=== PATIENT | female | born 1950 | race Caucasian/White ===

== ENCOUNTER → 2017-02-27 | Outpatient (CLI) | payer MEDICARE ==
--- NOTE | 2017-03-03 13:01 | MM ---
Reason for exam: screening (asymptomatic). Last mammogram was performed 1 year and 2 months ago. History: Patient is postmenopausal. Family history of breast cancer in mother at age 64. Benign excisional biopsy of the right breast, 1993. Took estrogen for 1 year beginning at age 46. Physical Findings: A clinical breast exam by your physician is recommended on an annual basis and results should be correlated with mammographic findings. MG 3D Screening Mammo W/Cad Bilateral CC and MLO view(s) were taken. Prior study comparison: December 21, 2015, bilateral MG 3d screening mammo w/cad. August 03, 2014, bilateral MG screening mammo w CAD. The breast tissue is almost entirely fat. Finding: There are secretory calcifications bilaterally. Due to large body habitus, there are 384 images. Difficult to compare. ASSESSMENT: Benign, BI-RAD 2 RECOMMENDATION: Routine screening mammogram of both breasts in 1 year.
== END | disposition home or self-care (01) ==
LOC: RADMAMWWP 10:18
PROVIDERS: ATTEND Internal Medicine
DX: Z12.31 Encounter for screening mammogram for malignant neoplasm of breast (principal)
CPT/HCPCS: 77063; G0202

== ENCOUNTER → 2017-03-13 | Outpatient (CLI) | payer MEDICARE ==
--- NOTE | 2017-03-14 06:45 | XR ---
EXAMINATION TYPE: XR chest 2V DATE OF EXAM: 03/13/2017 9:24 AM HISTORY: [id number] SOB. REFERENCE: NONE. FINDINGS: The study is compromised by the patient's tremendous size. The heart is enlarged. The lungs are clear. Pleural spaces are clear. IMPRESSION: CARDIOMEGALY.
== END ==
LOC: RADXRYALE 08:48
PROVIDERS: ATTEND Internal Medicine Cardiovascular Disease
DX: I51.7 Cardiomegaly (principal)
CPT/HCPCS: 71020

== ENCOUNTER 2017-08-23 13:27 | Emergency (ER) | payer MEDICARE ==
[2017-08-23] MEDS ORDERED: MORPHINE SULFATE 4 MG/ML SYRINGE IV STA (14:35)
[2017-08-23] MEDS ORDERED: ONDANSETRON 4 MG/2 ML VIAL IVP STA (14:35)
[2017-08-23] MEDS ORDERED: RX INFO: IV CONTRAST WAS GIVEN 1 EACH MISC MISCELLANE PRN (14:35)
[2017-08-23] MEDS ORDERED: SODIUM CHLORIDE 0.9% 1,000 ML IV STA ×2 (14:35)
[2017-08-23 15:27] LABS: Basophils # (A) 0.1 k/uL (0-0.2); Basophils % (A) 0 %; CH 29.2; Eosinophils # (A) 0.1 k/uL (0-0.7); Eosinophils % (A) 1 %; HCT 42.8 % (34.0-46.0); HDW 2.42; HGB 14.5 gm/dL (11.4-16.0); Luc # (Auto) 0.11; Luc % (Auto) 1; Lymphocytes # (A) 1.3 k/uL (1.0-4.8); Lymphocytes % (A) 11 %; MCH 29.9 pg (25.0-35.0); MCHC 33.7 g/dL (31.0-37.0); MCV 88.7 fL (80.0-100.0); Mean Platelet Volume 8.3; Monocytes # (A) 0.4 k/uL (0-1.0); Monocytes % (A) 4 %; Neutrophils # (A) 9.8 k/uL (1.3-7.7); Neutrophils % (A) 83 %; RBC 4.83 m/uL (3.80-5.40); RDW 12.6 % (11.5-15.5); WBC 11.8 k/uL (3.8-10.6); WBC (Perox) 11.94
[2017-08-23 15:33] LABS: ALT 38 U/L (9-52); AST 23 U/L (14-36); Alkaline Phosphatase 88 U/L (38-126); Amylase <30 U/L (30-110); Anion Gap 11 mmol/L; Blood Urea Nitrogen 17 mg/dL (7-17); Calcium 9.3 mg/dL (8.4-10.2); Carbon Dioxide 21 mmol/L (22-30); Chloride 107 mmol/L (98-107); Glucose 129 mg/dL (74-99); Non-African American GFR(MDRD) 45 (>60 ml/min/1.73 sqM); Potassium 4.2 mmol/L (3.5-5.1); Sodium 139 mmol/L (137-145); Total Bilirubin 0.6 mg/dL (0.2-1.3); Total Protein 7.1 g/dL (6.3-8.2)
--- NOTE | 2017-08-23 15:44 | ED ---
General Adult HPI - General Chief complaint: Abdominal Pain Stated complaint: Left side pain Time Seen by Provider: 08/23/17 14:22 Source: patient, RN notes reviewed, old records reviewed Mode of arrival: wheelchair Limitations: no limitations - History of Present Illness Initial comments: This is a 67-year-old female here for reversal Dialpak, patient is severe anterior left lower quadrant about pain rating to groin area. No radiation [place]. Patient denies any issues of bowel or bladder, no dysuria no hematuria , no blood in her stool. No recent diarrhea no fevers. Patient has multiple abdominal surgeries history of both gallbladder surgery, hysterectomy. Patient denies any vomiting. No recent colonoscopy - Related Data Home Medications Medication Instructions Recorded Confirmed Benazepril [Lotensin] 20 mg PO DAILY 02/02/15 08/23/17 Levothyroxine Sodium [Synthroid] 100 mcg PO DAILY 02/02/15 08/23/17 Omeprazole [PriLOSEC] 20 mg PO AC-BID 02/02/15 08/23/17 Lasix(Unknown Dose) 1 tab PO DAILY PRN 08/23/17 08/23/17 Allergies Allergy/AdvReac Type Severity Reaction Status Date / Time codeine AdvReac Abdominal Verified 08/23/17 14:34 Pain Review of Systems ROS Statement: Those systems with pertinent positive or pertinent negative responses have been documented in the HPI. ROS Other: All systems not noted in ROS Statement are negative. Past Medical History Past Medical History: GERD/Reflux, Hypertension, Thyroid Disorder History of Any Multi-Drug Resistant Organisms: None Reported Past Surgical History: Cholecystectomy, Hernia Repair, Hysterectomy Additional Past Surgical History / Comment(s): breast biopsy Past Psychological History: No Psychological Hx Reported Smoking Status: Never smoker Past Alcohol Use History: None Reported Past Drug Use History: None Reported General Exam Limitations: no limitations General appearance: alert, in no apparent distress, obese Head exam: Present: atraumatic, normocephalic, normal inspection Eye exam: Present: normal appearance, PERRL, EOMI. Absent: scleral icterus, conjunctival injection, periorbital swelling ENT exam: Present: normal exam, mucous membranes moist Neck exam: Present: normal inspection. Absent: tenderness, meningismus, lymphadenopathy Respiratory exam: Present: normal lung sounds bilaterally. Absent: respiratory distress, wheezes, rales, rhonchi, stridor Cardiovascular Exam: Present: regular rate, normal rhythm, normal heart sounds. Absent: systolic murmur, diastolic murmur, rubs, gallop, clicks GI/Abdominal exam: Present: soft, normal bowel sounds. Absent: distended, tenderness, guarding, rebound, rigid Extremities exam: Present: normal inspection, full ROM, normal capillary refill. Absent: tenderness, pedal edema, joint swelling, calf tenderness Back exam: Present: normal inspection Neurological exam: Present: alert, oriented X3, CN II-XII intact Psychiatric exam: Present: normal affect, normal mood Skin exam: Present: warm, dry, intact, normal color. Absent: rash Course Vital Signs 08/23/17 13:40 Temperature 97.9 F Pulse Rate 95 Respiratory 22 Rate Blood Pressure 165/81 O2 Sat by Pulse 96 Oximetry Medical Decision Making - Medical Decision Making 67 female date ER with left-sided flank pain mostly groin pain positive kidney stone. Patient given discharge pain medication, increase fluid intake. Lab work and urine are negative - Lab Data Result diagrams: 08/23/17 15:10 08/23/17 15:10 Lab Results 08/23/17 08/23/17 08/23/17 Range/Units 15:10 15:10 15:10 WBC 11.8 H (3.8-10.6) k/uL RBC 4.83 (3.80-5.40) m/uL Hgb 14.5 (11.4-16.0) gm/dL Hct 42.8 (34.0-46.0) % MCV 88.7 (80.0-100.0) fL MCH 29.9 (25.0-35.0) pg MCHC 33.7 (31.0-37.0) g/dL RDW 12.6 (11.5-15.5) % Plt Count 214 (150-450) k/uL Neutrophils % 83 % Lymphocytes % 11 % Monocytes % 4 % Eosinophils % 1 % Basophils % 0 % Neutrophils # 9.8 H (1.3-7.7) k/uL Lymphocytes # 1.3 (1.0-4.8) k/uL Monocytes # 0.4 (0-1.0) k/uL Eosinophils # 0.1 (0-0.7) k/uL Basophils # 0.1 (0-0.2) k/uL Sodium 139 (137-145) mmol/L Potassium 4.2 (3.5-5.1) mmol/L Chloride 107 (98-107) mmol/L Carbon Dioxide 21 L (22-30) mmol/L Anion Gap 11 mmol/L BUN 17 (7-17) mg/dL Creatinine 1.20 H (0.52-1.04) mg/dL Est GFR (MDRD) Af Amer 55 (>60 ml/min/1.73 sqM) Est GFR (MDRD) Non-Af 45 (>60 ml/min/1.73 sqM) Glucose 129 H (74-99) mg/dL Plasma Lactic Acid Bobby (0.7-2.0) mmol/L Calcium 9.3 (8.4-10.2) mg/dL Total Bilirubin 0.6 (0.2-1.3) mg/dL AST 23 (14-36) U/L ALT 38 (9-52) U/L Alkaline Phosphatase 88 (38-126) U/L Total Creatine Kinase 159 H (30-135) U/L CK-MB (CK-2) 1.4 (0.0-2.4) ng/mL CK-MB (CK-2) Rel Index 0.9 Total Protein 7.1 (6.3-8.2) g/dL Albumin 4.0 (3.5-5.0) g/dL Amylase <30 L (30-110) U/L Lipase 80 (23-300) U/L 08/23/17 Range/Units 15:10 WBC (3.8-10.6) k/uL RBC (3.80-5.40) m/uL Hgb (11.4-16.0) gm/dL Hct (34.0-46.0) % MCV (80.0-100.0) fL MCH (25.0-35.0) pg MCHC (31.0-37.0) g/dL RDW (11.5-15.5) % Plt Count (150-450) k/uL Neutrophils % % Lymphocytes % % Monocytes % % Eosinophils % % Basophils % % Neutrophils # (1.3-7.7) k/uL Lymphocytes # (1.0-4.8) k/uL Monocytes # (0-1.0) k/uL Eosinophils # (0-0.7) k/uL Basophils # (0-0.2) k/uL Sodium (137-145) mmol/L Potassium (3.5-5.1) mmol/L Chloride (98-107) mmol/L Carbon Dioxide (22-30) mmol/L Anion Gap mmol/L BUN (7-17) mg/dL Creatinine (0.52-1.04) mg/dL Est GFR (MDRD) Af Amer (>60 ml/min/1.73 sqM) Est GFR (MDRD) Non-Af (>60 ml/min/1.73 sqM) Glucose (74-99) mg/dL Plasma Lactic Acid Bobby 1.7 (0.7-2.0) mmol/L Calcium (8.4-10.2) mg/dL Total Bilirubin (0.2-1.3) mg/dL AST (14-36) U/L ALT (9-52) U/L Alkaline Phosphatase (38-126) U/L Total Creatine Kinase (30-135) U/L CK-MB (CK-2) (0.0-2.4) ng/mL CK-MB (CK-2) Rel Index Total Protein (6.3-8.2) g/dL Albumin (3.5-5.0) g/dL Amylase (30-110) U/L Lipase (23-300) U/L - Radiology Data Radiology results: report reviewed (CT pelvis shows positive left-sided kidney stone), image reviewed Disposition Clinical Impression: Abdominal pain, Calculus of left kidney, Renal calculus, left Disposition: HOME SELF-CARE Condition: Good Instructions: Kidney Stones (ED) Referrals: Sulma Moreno MD [Primary Care Provider] - 1-2 days
[2017-08-23 15:59] LABS: Creatine Kinase MB 1.4 ng/mL (0.0-2.4)
--- NOTE | 2017-08-23 16:15 | CT ---
EXAMINATION TYPE: CT abdomen pelvis w con DATE OF EXAM: 08/23/2017 COMPARISON: 02/02/2015 HISTORY: Left sided pain today. CT DLP: 4150.5 mGycm Automated exposure control for dose reduction was used. TECHNIQUE: Helical acquisition of images was performed from the lung bases through the pelvis. CONTRAST: Performed without Oral Contrast and with IV Contrast, patient injected with 80 mL of Visipaque 320. FINDINGS: Lung bases are clear of consolidation. There is no pleural effusion. There is slight decreased densit y in the liver consistent with fatty infiltration. There is no evidence of a splenic mass. There is n o pancreatic mass. There are clips from cholecystectomy. There is no adrenal mass. There is left-sided mild hydronephrosis. There is a 6 mm calculus at the le ft ureteropelvic junction. Kidneys have normal size. There is no retroperitoneal adenopathy. There is no ascites. Appendix appears normal. I see no intestinal wall thickening. There are no dilated loops. There is small area of high attenuat ion at the dependent urinary bladder that could relate to small bladder calculi. I see no bony destru ctive process. There is osteopenia. IMPRESSION: OBSTRUCTING SMALL CALCULUS AT THE LEFT URETERAL PELVIC JUNCTION WITH LEFT-SIDED HYDRONEPHROSIS AND NE LD PERINEPHRIC EDEMA. Possible multiple tiny bladder calculi. Normal appendix. Probable fatty infiltration of the liver.
[2017-08-23] MEDS ORDERED: KETOROLAC 30 MG/ML 1 ML VIAL IVP STA (16:17)
[2017-08-23] MEDS ORDERED: MORPHINE SULFATE 4 MG/ML SYRINGE IVP STA (16:27)
[2017-08-23 17:05] VITALS: BP 145/65; PULSE 98; RESP 17; TEMP 98.1
== END 2017-08-23 17:16 | disposition home or self-care (01) ==
LOC: EC 13:27
DX: N20.0 Calculus of kidney (principal); K21.9 Gastro-esophageal reflux disease without esophagitis; I10 Essential (primary) hypertension; E07.9 Disorder of thyroid, unspecified; Z79.899 Other long term (current) drug therapy; Z88.5 Allergy status to narcotic agent; Z90.49 Acquired absence of other specified parts of digestive tract; Z90.710 Acquired absence of both cervix and uterus
CPT/HCPCS: 99284; 96374; 96375; 36415; 80053; 82150; 82550; 82553; 83605; 83690; 85025; 74177; J2270; Q9967; J2405

== ENCOUNTER → 2017-10-15 | Outpatient (CLI) | payer MEDICARE ==
--- NOTE | 2017-10-15 11:23 | XR ---
EXAMINATION TYPE: XR shoulder complete LT DATE OF EXAM: 10/15/2017 CLINICAL HISTORY: Acute left shoulder pain. TECHNIQUE: Three views of the left shoulder are obtained. COMPARISON: None. FINDINGS: There is no acute fracture evident in the left shoulder. The acromioclavicular joint spac e appears within normal limits. There is curvilinear calcification along inferior margin of glenoid. There is suggestion of loss of rounded shape superior lateral aspect of humeral head. Slight medial a nd inferior positioning of humeral head relative to glenoid. The visualized ribs are intact and unrem arkable. IMPRESSION: There is suspected history of anterior shoulder dislocation with Hill-Sachs type deformi ty humeral head and suspected bony Bankart lesion involving inferior glenoid. Correlate clinically. S ome persistent anterior subluxation is felt present without marixa anterior dislocation.
== END | disposition home or self-care (01) ==
LOC: RADXRYALE 11:05
PROVIDERS: ATTEND Internal Medicine
DX: S43.002A Unspecified subluxation of left shoulder joint, initial encounter (principal)

== ENCOUNTER 2018-04-08 08:36 | Emergency (ER) | payer MEDICARE ==
[2018-04-08] MEDS ORDERED: FAMOTIDINE 20 MG/2 ML VIAL IV STA (09:27)
[2018-04-08] MEDS ORDERED: methylPREDNISolone SOD SUCCI 125 MG/2 ML VIAL IV STA (09:27)
[2018-04-08] MEDS ORDERED: diphenhydrAMINE 50 MG/ML 1 ML VIAL IVP STA (09:27)
--- NOTE | 2018-04-08 09:59 | ED ---
General Adult HPI - General Chief complaint: ENT Stated complaint: Trouble Swallowing, tongue swelling Time Seen by Provider: 04/08/18 09:11 Source: patient, RN notes reviewed Mode of arrival: ambulatory Limitations: no limitations - History of Present Illness Initial comments: Patient 68-year-old female presented emergency room today with a chief complaint of some tongue swelling and burning sensation to the right side. States that she noticed these symptoms 4 days ago lasted for a day off and on. States he put away the last 2 days she saw her family doctor. Was advised that if symptoms return that she should come here to the emergency room. Nurses symptoms again this morning. Seems to have gotten a little better but seems to be coming and going. States is no difficulty swallowing. No difficulty breathing. Patient does take Benzapril for her blood pressure. She did take this this morning. Patient denies any other complaints or symptoms. Patient denies any recent fever, chills, shortness of breath, chest pain, back pain, abdominal pain, nausea or vomiting, dysuria or hematuria, constipation or diarrhea, headaches or visual changes, or any other complaints. - Related Data Home Medications Medication Instructions Recorded Confirmed Benazepril [Lotensin] 20 mg PO DAILY 02/02/15 04/08/18 Levothyroxine Sodium [Synthroid] 100 mcg PO DAILY 02/02/15 04/08/18 Omeprazole [PriLOSEC] 20 mg PO AC-BID 02/02/15 04/08/18 Aspirin EC [Ecotrin Low Dose] 81 mg PO DAILY 04/08/18 04/08/18 Furosemide [Lasix] 40 mg PO DAILY PRN 04/08/18 04/08/18 Potassium Chloride [Klor-Con 10 meq PO DAILY PRN 04/08/18 04/08/18 Sprinkle] Allergies Allergy/AdvReac Type Severity Reaction Status Date / Time codeine Allergy Rash/Hives Verified 04/08/18 09:03 Review of Systems ROS Statement: Those systems with pertinent positive or pertinent negative responses have been documented in the HPI. ROS Other: All systems not noted in ROS Statement are negative. Past Medical History Past Medical History: GERD/Reflux, Hypertension, Thyroid Disorder History of Any Multi-Drug Resistant Organisms: None Reported Past Surgical History: Cholecystectomy, Hernia Repair, Hysterectomy Additional Past Surgical History / Comment(s): breast biopsy Past Psychological History: No Psychological Hx Reported Smoking Status: Never smoker Past Alcohol Use History: None Reported Past Drug Use History: None Reported General Exam - General Exam Comments Initial Comments: General: The patient is awake and alert, in no distress, and does not appear acutely ill. Eye: Pupils are equal, round and reactive to light, extra-ocular movements are intact. No nystagmus. There is normal conjunctiva bilaterally. No signs of icterus. Ears, nose, mouth and throat: There are moist mucous membranes and no oral lesions. No swelling appreciated on exam. Patient tolerating or secretions. Uvula is midline. Neck: The neck is supple, there is no tenderness or JVD. Cardiovascular: There is a regular rate and rhythm. No murmur, rub or gallop is appreciated. Respiratory: Lungs are clear to auscultation, respirations are non-labored, breath sounds are equal. No wheezes, stridor, rales, or rhonchi. Musculoskeletal: Normal ROM, no tenderness. Strength 5/5. Sensation intact. Pulses equal bilaterally 2+. Neurological: A&O x 3. CN II-XII intact, There are no obvious motor or sensory deficits. Coordination appears grossly intact. Speech is normal. Skin: Skin is warm and dry and no rashes or lesions are noted. Psychiatric: Cooperative, appropriate mood & affect, normal judgment. Limitations: no limitations Course Vital Signs 04/08/18 04/08/18 08:43 10:04 Temperature 98.2 F Pulse Rate 88 91 Respiratory 18 20 Rate Blood Pressure 204/91 167/81 O2 Sat by Pulse 98 98 Oximetry Medical Decision Making - Medical Decision Making Case discussed in detail with attending physician Dr. Brewster. Patient reexamined at this time shows no signs of distress resting comfortably. Blood work reviewed and are unremarkable. Patient feeling better at this time. She does admit that symptoms seem to come and go. She denies anything that she can think of that she is ALLERGIC to. She states nothing new. Patient is on Benzapril. At this time was discussed about possible cause. Advised to hold this medication. Advised follow-up the family doctor tomorrow. Advised return if symptoms increase or worsen. - Lab Data Result diagrams: 04/08/18 09:45 04/08/18 09:45 Lab Results 04/08/18 04/08/18 Range/Units 09:45 09:45 WBC 7.9 (3.8-10.6) k/uL RBC 4.59 (3.80-5.40) m/uL Hgb 13.3 (11.4-16.0) gm/dL Hct 39.6 (34.0-46.0) % MCV 86.3 (80.0-100.0) fL MCH 29.0 (25.0-35.0) pg MCHC 33.6 (31.0-37.0) g/dL RDW 12.5 (11.5-15.5) % Plt Count 217 (150-450) k/uL Neutrophils % 75 % Lymphocytes % 17 % Monocytes % 5 % Eosinophils % 2 % Basophils % 1 % Neutrophils # 6.0 (1.3-7.7) k/uL Lymphocytes # 1.3 (1.0-4.8) k/uL Monocytes # 0.4 (0-1.0) k/uL Eosinophils # 0.1 (0-0.7) k/uL Basophils # 0.0 (0-0.2) k/uL Sodium 141 (137-145) mmol/L Potassium 4.1 (3.5-5.1) mmol/L Chloride 104 (98-107) mmol/L Carbon Dioxide 23 (22-30) mmol/L Anion Gap 14 mmol/L BUN 17 (7-17) mg/dL Creatinine 0.99 (0.52-1.04) mg/dL Est GFR (CKD-EPI)AfAm 69 (>60 ml/min/1.73 sqM) Est GFR (CKD-EPI)NonAf 60 (>60 ml/min/1.73 sqM) Glucose 112 H (74-99) mg/dL Calcium 9.2 (8.4-10.2) mg/dL Disposition Clinical Impression: Allergic reaction Disposition: HOME SELF-CARE Condition: Good Instructions: Ear Foreign Body (ED), General Allergic Reaction (ED) Additional Instructions: Please hold Benzapril and discuss with family physician in the next 2 days. Please return here to the emergency room symptoms increase worsen or for any other concerns Is patient prescribed a controlled substance at d/c from ED?: No Referrals: Sulma Moreno MD [Primary Care Provider] - 1-2 days Time of Disposition: 11:01
[2018-04-08 10:16] LABS: Basophils % (A) 1 %; Eosinophils # (A) 0.1 k/uL (0-0.7); Eosinophils % (A) 2 %; HCT 39.6 % (34.0-46.0); HGB 13.3 gm/dL (11.4-16.0); Lymphocytes # (A) 1.3 k/uL (1.0-4.8); Lymphocytes % (A) 17 %; MCHC 33.6 g/dL (31.0-37.0); MCV 86.3 fL (80.0-100.0); Mean Platelet Volume 7.6; Monocytes # (A) 0.4 k/uL (0-1.0); Monocytes % (A) 5 %; Neutrophils % (A) 75 %; Platelet Count 217 k/uL (150-450); RBC 4.59 m/uL (3.80-5.40); RDW 12.5 % (11.5-15.5); WBC 7.9 k/uL (3.8-10.6)
[2018-04-08 10:39] LABS: Calcium 9.2 mg/dL (8.4-10.2); Potassium 4.1 mmol/L (3.5-5.1)
[2018-04-08 11:34] VITALS: BP 156/78; PULSE 70; RESP 18; TEMP 97.8
== END 2018-04-08 11:25 | disposition home or self-care (01) ==
LOC: EC 08:36
DX: T78.40XA Allergy, unspecified, initial encounter (principal); K21.9 Gastro-esophageal reflux disease without esophagitis; I10 Essential (primary) hypertension; E07.9 Disorder of thyroid, unspecified; Z79.82 Long term (current) use of aspirin; Z79.899 Other long term (current) drug therapy; Z88.5 Allergy status to narcotic agent
CPT/HCPCS: 36415; 80048; 85025; 99284; 96374; 96375 ×2; J1200; J2930

== ENCOUNTER → 2021-04-17 | Outpatient (CLI) | payer MEDICARE ==
--- NOTE | 2021-04-17 15:52 | US ---
EXAMINATION TYPE: US venous doppler duplex LE LT DATE OF EXAM: 04/17/2021 2:59 PM COMPARISON: NONE CLINICAL HISTORY: M79.89 Left leg swelling. TECHNIQUE: The lower extremity deep venous system is examined utilizing real time linear array sonog yarelis with graded compression, doppler sonography and color-flow sonography. VESSELS IMAGED: Common Femoral Vein Deep Femoral Vein Greater Saphenous Vein * Femoral Vein Popliteal Vein Small Saphenous Vein * Proximal Calf Veins (* superficial vessels) Left Leg: Negative for DVT as visualized in this very limited study. Gross morbid obesity, interstit ial edema, unable to visualize vessels in groin due to large panus, unable to well visualized vessels behind knee due to edema and inability to turn probe in transverse. IMPRESSION: 1. Very limited study due to gross morbid obesity. Inability to visualize the vessels in the groin du e to large amount of pannus and vessels behind the knee due to edema and difficult positioning. No vi sualized deep venous thrombosis in the left lower extremity.
== END | disposition home or self-care (01) ==
LOC: RADUSWWP 14:30
PROVIDERS: ATTEND Internal Medicine
DX: M79.89 Other specified soft tissue disorders (principal); E66.01 Morbid (severe) obesity due to excess calories

== ENCOUNTER 2021-06-30 22:36 | Inpatient (IN) | payer MEDICARE ==
[2021-06-30] MEDS ORDERED: HEPARIN SODIUM 1,000 UN/ML (10ML VL) IV PRN (23:23)
--- NOTE | 2021-06-30 23:29 | ED ---
General Adult HPI - General Chief complaint: Chest Pain Stated complaint: AFib Time Seen by Provider: 06/30/21 22:38 Source: patient, EMS Mode of arrival: EMS Limitations: no limitations - History of Present Illness Initial comments: This patient is a 71-year-old woman who presents here as a transfer from [facility]. The patient had gone there probably around 2 in the afternoon she states because she was experiencing palpitations and dyspnea. The patient states that the symptoms had started last night while she was trying to sleep. She states it felt like her heart was flopping. She states that when it hadn't resolved by today she felt she should go to the hospital and was seen there. At the other hospital she was diagnosed with the new onset of atrial fibrillation or flutter. Her initial heart rate was in the 140s. She was given Cardizem and heparin and transferred here on infusions of both those medications. From the other hospital her initial troponin was negative. The patient is denying significant chest pain. Patient had some intermittent dyspnea but states it is gone now. She has not had other anginal symptoms. Onset/Timin -: days(s) Location: chest Radiation: non-radiation Severity scale (1-10): 0 Quality: other Consistency: constant Improves with: none Worsens with: none Associated Symptoms: shortness of breath - Related Data Home Medications Medication Instructions Recorded Confirmed Omeprazole [PriLOSEC] 20 mg PO DAILY 02/02/15 07/01/21 Acetaminophen Tab [Tylenol] 1,000 mg PO Q6HR PRN 07/01/21 07/01/21 Furosemide [Lasix] 10 mg PO DAILY PRN 07/01/21 07/01/21 Levothyroxine Sodium [Synthroid] 125 mcg PO DAILY 07/01/21 07/01/21 Potassium Chloride ER [K-Dur 10] 10 meq PO DAILY PRN 07/01/21 07/01/21 SILVER sulfADIAZINE CREAM 1 applic TOPICAL DAILY 07/01/21 07/01/21 [Silvadene Cream] Previous Rx's Medication Instructions Recorded Apixaban [Eliquis] 5 mg PO BID 30 Days #60 tab 07/02/21 Diltiazem Oral [Cardizem*] 30 mg PO TID 30 Days #90 tab 07/03/21 Cephalexin [Keflex] 500 mg PO Q6HR 7 Days #28 cap 07/04/21 Losartan Potassium 100 mg PO DAILY 30 Days #30 tab 07/04/21 Allergies Allergy/AdvReac Type Severity Reaction Status Date / Time codeine Allergy Rash/Hives Verified 07/01/21 08:28 Review of Systems ROS Statement: Those systems with pertinent positive or pertinent negative responses have been documented in the HPI. ROS Other: All systems not noted in ROS Statement are negative. Constitutional: Denies: fever, chills Eyes: Denies: vision change Respiratory: Reports: as per HPI, dyspnea. Denies: cough, wheezes, hemoptysis Cardiovascular: Reports: palpitations. Denies: chest pain, orthopnea, edema, syncope Gastrointestinal: Denies: abdominal pain, vomiting, diarrhea, melena, hematochezia Genitourinary: Denies: dysuria, frequency Musculoskeletal: Denies: back pain Skin: Reports: change in color (Left lower extremity) Neurological: Denies: headache, weakness, numbness Hematological/Lymphatic: Denies: easy bleeding Past Medical History Past Medical History: GERD/Reflux, Hypertension, Thyroid Disorder History of Any Multi-Drug Resistant Organisms: None Reported Past Surgical History: Cholecystectomy, Hernia Repair, Hysterectomy Additional Past Surgical History / Comment(s): breast biopsy Past Psychological History: No Psychological Hx Reported Smoking Status: Never smoker Past Alcohol Use History: None Reported Past Drug Use History: None Reported General Exam Limitations: no limitations General appearance: alert, in no apparent distress Head exam: Present: atraumatic, normocephalic Eye exam: Present: normal appearance. Absent: scleral icterus, conjunctival injection ENT exam: Present: normal oropharynx Neck exam: Present: normal inspection Respiratory exam: Present: normal lung sounds bilaterally. Absent: respiratory distress, wheezes, rales, rhonchi, stridor Cardiovascular Exam: Present: regular rate (Proximally 70 at my exam), normal rhythm, normal heart sounds. Absent: systolic murmur, diastolic murmur, rubs, gallop GI/Abdominal exam: Present: soft. Absent: distended, tenderness, guarding, re bound, rigid Extremities exam: Present: full ROM, normal capillary refill, pedal edema (Trace edema and warmth of the left lower extremity, mainly pretibial area). Absent: tenderness, calf tenderness Back exam: Present: normal inspection Neurological exam: Present: alert Skin exam: Present: warm, dry, intact, erythema (Left lower extremity). Absent: rash Course Vital Signs 06/30/21 06/30/21 06/30/21 22:39 22:52 23:30 Temperature 98 F Pulse Rate 72 70 Pulse Rate [ 70 Insulation Estimator ] Respiratory 20 20 Rate Blood Pressure 142/86 147/75 Blood Pressure [Left Arm] O2 Sat by Pulse 98 98 Oximetry 07/01/21 00:30 Temperature 97.7 F Pulse Rate Pulse Rate [ 96 Insulation Estimator ] Respiratory 18 Rate Blood Pressure Blood Pressure 163/94 [Left Arm] O2 Sat by Pulse 98 Oximetry EKG Findings - EKG Comments: EKG Findings:: The 12-lead ECG appears show the underlying rhythm is atrial flutter with approximately 14-1 conduction. Possible old septal infarct. - EKG Results: EKG: interpreted by KARLA, normal axis, normal ST/T Medical Decision Making - Lab Data Result diagrams: 07/02/21 07:14 07/03/21 07:08 Lab Results 06/30/21 06/30/21 Range/Units 23:15 23:15 PT 11.5 (9.0-12.0) sec INR 1.1 (<1.2) APTT 91.5 H (22.0-30.0) sec Troponin I 0.015 (0.000-0.034) ng/mL Disposition Clinical Impression: Atrial flutter, Cellulitis of left leg Disposition: ADMITTED IP TO THIS HOSP Condition: Fair
[2021-06-30] MEDS ORDERED: HEPARIN SOD,PORK IN 0.45% NACL 25,000 UNIT in 0.45% NACL 1 250ML.BAG IV SCH (23:30)
[2021-06-30] MEDS ORDERED: DILTIAZEM 125 MG in SODIUM CHLORIDE 0.9% 100 ML IV SCH (23:30)
[2021-06-30] MEDS ORDERED: NITROGLYCERIN SL TABS 0.4 MG TAB SUBLINGUAL PRN (23:31)
[2021-06-30] MEDS ORDERED: FUROSEMIDE 40 MG TAB PO PRN (23:33)
[2021-06-30] MEDS ORDERED: POTASSIUM CHLORIDE ER 10 MEQ TAB.ER.PRT PO PRN (23:33)
[2021-07-01 00:22] LABS: INR 1.1 (<1.2); Partial Thromboplastin Time 91.5 sec (22.0-30.0); Prothrombin Time 11.5 sec (9.0-12.0)
[2021-07-01] MEDS: PANTOPRAZOLE 40 MG TABLET PO SCH (06:13)
[2021-07-01] MEDS ORDERED: LEVOTHYROXINE 100 MCG TAB PO SCH (06:30)
[2021-07-01] MEDS ORDERED: FAMOTIDINE 20 MG/2 ML VIAL IV SCH (09:00)
[2021-07-01] MEDS ORDERED: ASPIRIN 325 MG TAB PO SCH (09:00)
[2021-07-01] MEDS ORDERED: lisinopriL 20 MG TAB PO SCH (09:00)
--- NOTE | 2021-07-01 09:12 | P.HPIM ---
History of Present Illness This is a pleasant 71 years old female with past medical history of hypertension, GERD, hypothyroidism. She is a patient of Dr. Moreno. Her metal reed tuner is Dr. Miles, her PCP sent her to him but she is not sure why, she had a stress test 2 years ago but she could not finish it. She was transferred from [facility] for dyspnea and palpitations and found to have A. fib/flutter Patient states that she went to [facility] because of irregular palpitation Friday to Friday night, thus 2 nights ago. Patient also has referred to Dr. Barriga last week because of left leg cellulitis while on Keflex, ultrasound of the left leg was then showing no clot per report from [place] Patient states that she has chronic dyspnea with no recent worsening Vital signs stable. Heart rate is controlled and 70s. Troponins 2 are -ve 0.015. INR is normal at 1.1. EKG showing atrial flutter with 421 AV block at [address]-T changes. In the emergency room also patient was started on cefazolin for possible cellulitis, she is on Cardizem drip at 5 mg per hour and heparin drip. Review of records from [facility] Urinalysis is not suspicious for infection WBC is normal at 9. Hemoglobin 13.9, platelets 226. However she has elevated neutrophil at 74.1. INR is 1.0. Sodium 139, potassium 3.8. Creatinine 1.1 EKG reported to have atrial fibrillation ProBNP is 277, TSH normal 2.9 CTA of the chest with contrast showing no definite acute central pulmonary embolus. Segmental and subsegmental pulmonary arteries are severely limited in evaluation. Review of Systems CONSTITUTIONAL: No fever, no malaise, no fatigue. HEENT: No recent visual problems or hearing problems. Denied any sore throat. CARDIOVASCULAR: No orthopnea, PND, no syncope. PULMONARY: No chest wall tenderness, no cough, no hemoptysis. GASTROINTESTINAL: No diarrhea, no nausea, no vomiting, no abdominal pain. Normoactive bowel sounds. NEUROLOGICAL: No headaches, no weakness, no numbness. HEMATOLOGICAL: Denies any bleeding or petechiae. GENITOURINARY: Denies any burning micturition, frequency, or urgency. MUSCULOSKELETAL/RHEUMATOLOGICAL: Denies any joint pain, swelling, or any muscle pain. ENDOCRINE: Denies any polyuria or polydipsia. Past Medical History Past Medical History: GERD/Reflux, Hypertension, Thyroid Disorder History of Any Multi-Drug Resistant Organisms: None Reported Past Surgical History: Cholecystectomy, Hernia Repair, Hysterectomy Additional Past Surgical History / Comment(s): breast biopsy Past Psychological History: No Psychological Hx Reported Smoking Status: Never smoker Past Alcohol Use History: None Reported Past Drug Use History: None Reported Medications and Allergies Home Medications Medication Instructions Recorded Confirmed Type Omeprazole [PriLOSEC] 20 mg PO DAILY 02/02/15 07/01/21 History Acetaminophen Tab [Tylenol Tab] 1,000 mg PO Q6HR PRN 07/01/21 07/01/21 History Furosemide [Lasix] 10 mg PO DAILY PRN 07/01/21 07/01/21 History Ibuprofen [Motrin Ib] 400 mg PO Q8H PRN 07/01/21 07/01/21 History Levothyroxine Sodium [Synthroid] 125 mcg PO DAILY 07/01/21 07/01/21 History Losartan Potassium 100 mg PO DAILY 07/01/21 07/01/21 History Potassium Chloride ER [K-Dur 10] 10 meq PO DAILY PRN 07/01/21 07/01/21 History SILVER sulfADIAZINE CREAM 1 applic TOPICAL DAILY 07/01/21 07/01/21 History [Silvadene Cream] Allergies Allergy/AdvReac Type Severity Reaction Status Date / Time codeine Allergy Rash/Hives Verified 07/01/21 08:28 Physical Exam Vitals: Vital Signs Temp Pulse Pulse Resp BP BP Pulse Ox 07/01/21 04:00 75 18 130/73 99 07/01/21 00:30 97.7 F 96 18 163/94 98 06/30/21 23:30 70 20 147/75 98 06/30/21 22:52 70 06/30/21 22:39 98 F 72 20 142/86 98 Intake and Output 06/30/21 07/01/21 07/01/21 22:59 06:59 14:59 Intake Total 0 Balance 0 Intake: Oral 0 Other: Voiding Method Toilet # Voids 3 Weight 149.685 kg 150 kg -GENERAL: The patient is alert and oriented x3, not in any acute distress. Obese HEENT: Pupils are round and equally reacting to light. EOMI. No scleral icterus. No conjunctival pallor. Normocephalic, atraumatic. No pharyngeal erythema. No thyromegaly. CARDIOVASCULAR: S1 and S2 present. No murmurs, rubs, or gallops. PULMONARY: Chest is clear to auscultation, no wheezing or crackles. ABDOMEN: Soft, nontender, nondistended, normoactive bowel sounds. No palpable organomegaly. MUSCULOSKELETAL: No joint swelling or deformity. -EXTREMITIES: No cyanosis, clubbing, or pedal edema. Left leg is warm and red. No swelling NEUROLOGICAL: Gross neurological examination did not reveal any focal deficits. SKIN: No rashes. No petechiae Results Labs: Abnormal Lab Results - Last 24 Hours (Table) 06/30/21 Range/Units 23:15 APTT 91.5 H (22.0-30.0) sec Assessment and Plan Assessment: New onset A. fib/flutter Possible left leg cellulitis , rule out DVT Hypertension Hypothyroidism Elevated creatinine at 1.1, possible chronic kidney disease versus subacute elements History of GERD Plan: This is a pleasant 71 years old female who presents with A. fib and flutter. Continue with heparin and Cardizem drip. Cardiology consult. Check hemoglobin A1c. Duplex ultrasound Continue with cefazolin. Labs and medication were reviewed.. Continue same treatment. Continue with symptomatic treatment. Resume home medication. Monitor lytes and vitals. DVT and GI prophylaxis. Further recommendations depends on the clinical course of the patient DVT prophylaxis:s heparin GI Prophylaxis: Pepcid PT/OT: Pending Prognosis is guarded
[2021-07-01] MEDS ORDERED: LEVOTHYROXINE 25 MCG TAB PO ONE (09:30)
--- NOTE | 2021-07-01 09:48 | US ---
EXAMINATION TYPE: US venous doppler duplex LE LT DATE OF EXAM: 07/01/2021 9:34 AM COMPARISON: US dated 04/17/2021 CLINICAL HISTORY: Rule out DVT. cellulitis SIDE PERFORMED: Left TECHNIQUE: The lower extremity deep venous system is examined utilizing real time linear array sonog yarelis with graded compression, doppler sonography and color-flow sonography. VESSELS IMAGED: Common Femoral Vein Deep Femoral Vein Greater Saphenous Vein * Femoral Vein Popliteal Vein Small Saphenous Vein * Proximal Calf Veins (* superficial vessels) Left Leg: Negative for DVT IMPRESSION: Grayscale, color doppler, spectral doppler imaging performed of the deep veins of the lo wer extremities. There is normal flow, compressibility, vascular waveforms.
[2021-07-01 11:47] LABS: Chol/HDL Ratio 5.91; LDL Cholesterol,Calculated 69.4 mg/dL (0.0-131.0); VLDL Calculation 38.6 mg/dL (5.00-40.00)
--- NOTE | 2021-07-01 11:47 | P.CRDCN ---
History of Present Illness History of present illness: HISTORY OF PRESENTING ILLNESS Patient is a pleasant 71-year-old female with history of hypertension, GERD, hypothyroidism, chronic lower extremity edema who presents from [facility] secondary to atrial flutter. Patient states a few nights ago she had been feeling fairly well when she started feeling palpitations and feeling like her heart was fluttering. She therefore went to hospital in [place] was found to have new-onset atrial flutter. She was started on Cardizem drip and placed on a heparin drip. She also has had bilateral lower extremity edema however predominantly on the left side. She recently saw Dr. Bhakta on Friday where she had ultrasound which showed no blood clot and was placed on a cream with recommendations for compression stockings. She admits she cannot put on the compression stockings. Her lower extremity edema is usually worse at night afte r being on her feet all day and better in the morning however always has some degree of swelling. She also takes Lasix which somewhat improved the swelling however normally avoids it as she will have to urinate throughout the day. She denies any history of heart failure that she knows of, coronary artery disease or stenting. No prior history of A. fib. No issues with bleeding. She does see Dr. Hampton however has been a few years. She admits she likely has sleep apnea however hasn't been checked. Blood work at [facility] showed white blood cell count 9, hemoglobin 13.9, platelets 226, creatinine 1.1, proBNP 277, TSH 2.[address] of the chest showed no pulmonary embolism. REVIEW OF SYSTEMS At the time of my exam: CONSTITUTIONAL: Denies fever or chills. CARDIOVASCULAR: Denies chest pain, +chronic shortness of breath, no orthopnea, PND or palpitations. +LE edema RESPIRATORY: Denies cough. GASTROINTESTINAL: Denies abdominal pain, diarrhea, constipation, nausea or vomit ing. MUSCULOSKELETAL: Denies myalgias. NEUROLOGIC: Denies numbness, tingling or weakness. ENDOCRINE: Denies fatigue, weight change, polydipsia or polyurina. GENITOURINARY: Denies burning, hematuria or urgency with micturation. HEMATOLOGIC: Denies history of anemia or bleeding. PHYSICAL EXAMINATION Vital signs reviewed. CONSTITUTIONAL: No apparent distress, obese HEENT: Head is normocephalic. Pupils are equal, round. Sclerae anicteric. Mucous membranes of the mouth are moist. No JVD. No carotid bruit. CHEST EXAMINATION: Lungs are clear to auscultation. No chest wall tenderness is noted on palpation or with deep breathing. HEART EXAMINATION: Irregular rate and rhythm. S1, S2 heard. No murmurs, gallops or rub. ABDOMEN: Soft, nontender. Positive bowel sounds. EXTREMITIES: 2+ peripheral pulses, +L much greater than right lower extremity edema, mild erythema of LLE, no calf tenderness. NEUROLOGIC EXAMINATION: Patient is awake, alert and oriented x3. ASSESSMENT 1. New-onset atrial flutter, currently controlled ventricular rate 2. Chronic left lower extremity edema, likely in the component of venous insufficiency 3. Left lower extremity cellulitis 4. Essential hypertension 5. Likely sleep apnea PLAN New-onset of atrial flutter with controlled ventricular rates on Cardizem drip at 5. We will stop Cardizem drip and start by mouth Cardizem 30 mg every 8 hours. Stop heparin drip and start Eliquis 5 mg twice a day and evaluate for pricing. Check 2-D echo to evaluate for left ventricular function. Patient likely needs outpatient sleep study. Left lower extremity swelling likely mainly related to venous insufficiency however normally does help somewhat with Lasix at home however she does not take the Lasix. Continue scheduled Lasix while in the hospital. Likely discharge home after echocardiogram performed and if heart rates are controlled. Past Medical History Past Medical History: GERD/Reflux, Hypertension, Thyroid Disorder History of Any Multi-Drug Resistant Organisms: None Reported Past Surgical History: Cholecystectomy, Hernia Repair, Hysterectomy Additional Past Surgical History / Comment(s): breast biopsy Past Psychological History: No Psychological Hx Reported Smoking Status: Never smoker Past Alcohol Use History: None Reported Past Drug Use History: None Reported Medications and Allergies Home Medications Medication Instructions Recorded Confirmed Type Omeprazole [PriLOSEC] 20 mg PO DAILY 02/02/15 07/01/21 History Acetaminophen Tab [Tylenol Tab] 1,000 mg PO Q6HR PRN 07/01/21 07/01/21 History Furosemide [Lasix] 10 mg PO DAILY PRN 07/01/21 07/01/21 History Ibuprofen [Motrin Ib] 400 mg PO Q8H PRN 07/01/21 07/01/21 History Levothyroxine Sodium [Synthroid] 125 mcg PO DAILY 07/01/21 07/01/21 History Losartan Potassium 100 mg PO DAILY 07/01/21 07/01/21 History Potassium Chloride ER [K-Dur 10] 10 meq PO DAILY PRN 07/01/21 07/01/21 History SILVER sulfADIAZINE CREAM 1 applic TOPICAL DAILY 07/01/21 07/01/21 History [Silvadene Cream] Allergies Allergy/AdvReac Type Severity Reaction Status Date / Time codeine Allergy Rash/Hives Verified 07/01/21 08:28 Physical Exam Vitals: Vital Signs Temp Pulse Pulse Resp BP BP Pulse Ox 07/01/21 04:00 75 18 130/73 99 07/01/21 00:30 97.7 F 96 18 163/94 98 06/30/21 23:30 70 20 147/75 98 06/30/21 22:52 70 06/30/21 22:39 98 F 72 20 142/86 98 Intake and Output 06/30/21 07/01/21 07/01/21 22:59 06:59 14:59 Intake Total 0 586.167 Balance 0 586.167 Intake: Intake, IV Titration 106.167 Amount Heparin Sod,Pork in 0.45% 106.167 NaCl 25,000 unit In 0.45 % NaCl 1 250ml.bag @ 6. 6807 UNITS/KG/HR 10 mls/ hr IV .Q24H EZIO Rx#: [id number] Oral 0 480 Other: Voiding Method Toilet # Voids 3 2 Weight 149.685 kg 150 kg Results Cardiac Enzymes 06/30/21 07/01/21 07/01/21 Range/Units 23:15 03:24 07:10 Troponin I 0.015 0.015 <0.012 (0.000-0.034) ng/mL Coagulation 06/30/21 07/01/21 Range/Units 23:15 07:10 PT 11.5 (9.0-12.0) sec APTT 91.5 H 29.2 (22.0-30.0) sec Current Medications Generic Name Dose Route Start Last Admin Trade Name Freq PRN Reason Stop Dose Admin Diltiazem HCl 30 mg 07/01/21 16:00 Diltiazem Oral 30 Mg Tab PO TID [facility] Famotidine 20 mg 07/01/21 09:00 07/01/21 09:57 Famotidine 20 Mg/2 Ml Vial IV 20 mg Q12HR EZIO Administration Furosemide 40 mg 07/01/21 11:45 Furosemide 40 Mg Tab PO DAILY [facility] Heparin Sodium (Porcine) 0 unit 06/30/21 23:23 07/01/21 10:39 Heparin Sodium 1,000 Un/Ml (10ml Vl) IV 4,000 unit PER PROTOCOL PRN Administration Low PTT Protocol Cefazolin Sodium 1,000 mg/ 50 mls @ 100 mls/hr 07/01/21 00:00 07/01/21 10:34 Sodium Chloride IVPB 100 mls/hr Q8HR EZIO Administration Levothyroxine Sodium 125 mcg 07/02/21 06:30 Levothyroxine 125 Mcg Tab PO DAILY@0630 [facility] Losartan Potassium 50 mg 07/02/21 09:00 Losartan 50 Mg Tab PO DAILY [facility] Nitroglycerin 0.4 mg 06/30/21 23:31 Nitroglycerin Sl Tabs 0.4 Mg Tab SUBLINGUAL Q5M PRN Chest Pain Pantoprazole Sodium 40 mg 07/01/21 07:30 07/01/21 06:13 Pantoprazole 40 Mg Tablet PO 40 mg [id number] EZIO Administration Potassium Chloride 10 meq 06/30/21 23:33 Potassium Chloride Er 10 Meq Tab.Er.Prt PO DAILY PRN SWELLING Intake and Output 06/30/21 07/01/21 07/01/21 22:59 06:59 14:59 Intake Total 0 586.167 Balance 0 586.167 Intake: Intake, IV Titration 106.167 Amount Heparin Sod,Pork in 0.45% 106.167 NaCl 25,000 unit In 0.45 % NaCl 1 250ml.bag @ 6. 6807 UNITS/KG/HR 10 mls/ hr IV .Q24H EZIO Rx#: [id number] Oral 0 480 Other: Voiding Method Toilet # Voids 3 2 Weight 149.685 kg 150 kg
[2021-07-01] MEDS: APIXABAN 5 MG TAB PO SCH ×2 (12:52→19:42)
[2021-07-01] MEDS: FUROSEMIDE 40 MG TAB PO SCH (12:52)
[2021-07-01] MEDS: DILTIAZEM ORAL 30 MG TAB PO SCH ×2 (16:40→20:56)
[2021-07-01 20:18] LABS: Hemoglobin A1C 5.8 % (4.0-6.0)
[2021-07-01] MEDS ORDERED: FAMOTIDINE 20 MG TAB PO SCH (21:00)
[2021-07-02] MEDS: PANTOPRAZOLE 40 MG TABLET PO SCH (06:28)
[2021-07-02] MEDS: LEVOTHYROXINE 125 MCG TAB PO SCH (06:28)
[2021-07-02 07:58] LABS: HCT 39.1 % (34.0-46.0); HGB 12.9 gm/dL (11.4-16.0); MCH 29.6 pg (25.0-35.0); MCV 89.8 fL (80.0-100.0); Platelet Count 194 k/uL (150-450); RBC 4.36 m/uL (3.80-5.40); WBC 7.3 k/uL (3.8-10.6)
[2021-07-02 07:59] LABS: Basophils % (A) 1 %; Eosinophils # (A) 0.2 k/uL (0-0.7); Eosinophils % (A) 2 %; Lymphocytes # (A) 2.1 k/uL (1.0-4.8); Lymphocytes % (A) 29 %; Monocytes # (A) 0.6 k/uL (0-1.0); Monocytes % (A) 8 %; Neutrophils # (A) 4.2 k/uL (1.3-7.7); Neutrophils % (A) 58 %
[2021-07-02 08:15] LABS: Calcium 8.9 mg/dL (8.4-10.2); Potassium 3.4 mmol/L (3.5-5.1)
[2021-07-02] MEDS ORDERED: Potassium Replacement Protocol 1 EACH MISC MISCELLANE PRN (08:34)
[2021-07-02] MEDS: FUROSEMIDE 40 MG TAB PO SCH (08:42)
[2021-07-02] MEDS: DILTIAZEM ORAL 30 MG TAB PO SCH ×3 (08:42→21:29)
[2021-07-02] MEDS: LOSARTAN 50 MG TAB PO SCH (08:42)
[2021-07-02] MEDS: APIXABAN 5 MG TAB PO SCH ×2 (08:42→21:29)
[2021-07-02] MEDS: POTASSIUM CHLORIDE ER 20 MEQ TAB.ER PO SCH ×2 (09:48→12:35)
--- NOTE | 2021-07-02 11:09 | P.PN ---
Subjective Patient is a pleasant 71-year-old female with history of hypertension, GERD, hypothyroidism, chronic lower extremity edema who presents from [facility] secondary to atrial flutter. She does see Dr. Hampton however has been a few years. Patient states a few nights ago she had been feeling fairly well when she started feeling palpitations and feeling like her heart was fluttering. She therefore went to hospital in [place] was found to have new- onset atrial flutter. She was started on Cardizem drip and placed on a heparin drip. No prior history of A. fib. No issues with bleeding. She admits she likely has sleep apnea however hasn't been checked. Work up at [facility] showed white blood cell count 9, hemoglobin 13.9, platelets 226, creatinine 1.1, proBNP 277, TSH 2.[address] of the chest showed no pulmonary embolism. 07/02/2021: Patient seen and examined at bedside, no acute distress. She denies any chest pain, palpitations, lightheadedness, dizziness. She does continue to have left lower extremity redness in occasional burning. She states the redness has improved. Telemetry reviewed, patient is currently in sinus mechanism HR 60- 80s. Awaiting Echocardiogram. Blood pressure 125/73, heart rate 81 afebrile maintaining oxygen saturations 94% on room air. Patient currently maintained on Eliquis 5 mg twice a day, Cardizem 30 mg 3 times a day, Lasix 40 mg daily, losartan 50 mg daily, IV cefazolin. PHYSICAL EXAMINATION Vital signs reviewed. CONSTITUTIONAL: No apparent distress, obese HEENT: Head is normocephalic. No JVD. CHEST EXAMINATION: Lungs are clear to auscultation. No chest wall tenderness is noted on palpation or with deep breathing. HEART EXAMINATION: Regular rate and rhythm. S1, S2 heard. No murmurs, gallops or rub. ABDOMEN: Soft, nontender. Positive bowel sounds. EXTREMITIES: 2+ peripheral pulses, +L much greater than right lower extremity edema, mild erythema of LLE, no calf tenderness. NEUROLOGIC EXAMINATION: Patient is awake, alert and oriented x3. ASSESSMENT New-onset paroxysmal atrial flutter, currently in sinus mechanism Chronic left lower extremity edema, likely in the component of venous insufficiency Left lower extremity cellulitis Essential hypertension Likely sleep apnea PLAN -New-onset of atrial flutter with controlled ventricular rates, now converted to sinus mecnaims. We will Cardizem 30 mg every 8 hours. -Anticoagulation: Eliquis 5 mg twice a day Case management consulted for Eliquis coverage, states dawn is $123.02 due to deductible, and then should be $40 per month, patient will also get a free month -Patient likely needs outpatient sleep study. -Left lower extremity swelling likely mainly related to venous insufficiency however normally does help somewhat with Lasix at home however she does not take the Lasix. Continue scheduled Lasix while in the hospital. -If patient's echocardiogram is normal, with no acute findings, ok to discharge patient from cardiology perspective. -Patient to follow up outpatient in the office. Objective - Vital Signs Vital signs: Vital Signs Temp 98.2 F 07/01/21 20:00 Pulse 77 07/02/21 04:00 Resp 18 07/02/21 04:00 BP 133/76 07/02/21 04:00 Pulse Ox 95 07/02/21 07:49 Intake & Output 07/01/21 07/02/21 07/02/21 18:59 06:59 18:59 Intake Total 706.167 480 Balance 706.167 480 Weight 149.3 kg Intake: Intake, IV Titration 106.167 Amount Heparin Sod,Pork in 0.45% 106.167 NaCl 25,000 unit In 0.45 % NaCl 1 250ml.bag @ 6. 6807 UNITS/KG/HR 10 mls/ hr IV .Q24H EZIO Rx#: [id number] Oral 600 480 Other: Voiding Method Toilet Toilet # Voids 2 2 - Labs CBC & Chem 7: 07/02/21 07:14 07/02/21 07:14 Labs: Abnormal Lab Results - Last 24 Hours (Table) 07/01/21 07/02/21 Range/Units 07:10 07:14 Sodium 136 L (137-145) mmol/L Potassium 3.4 L (3.5-5.1) mmol/L Creatinine 1.09 H (0.52-1.04) mg/dL Glucose 103 H (74-99) mg/dL Triglycerides 193.0 H (0.0-149.0) mg/dL HDL Cholesterol 22.0 L (40.0-60.0) mg/dL
--- NOTE | 2021-07-02 11:56 | P.PN ---
Subjective This is a pleasant 71 years old female with past medical history of hypertension, GERD, hypothyroidism. She is a patient of Dr. Moreno. Her cardiol ogist is Dr. Miles, her PCP sent her to him but she is not sure why, she had a stress test 2 years ago but she could not finish it. She was transferred from [facility] for dyspnea and palpitations and found to have A. fib/flutter Patient states that she went to [facility] because of irregular palpitation Friday to Friday night, thus 2 nights ago. Patient also has referred to Dr. Barriga last week because of left leg cellulitis while on Keflex, ultrasound of the left leg was then showing no clot per report from [place] Patient states that she has chronic dyspnea with no recent worsening Vital signs stable. Heart rate is controlled and 70s. Troponins 2 are -ve 0.015. INR is normal at 1.1. EKG showing atrial flutter with 421 AV block at [address]-T changes. In the emergency room also patient was started on cefazolin for possible cellulitis, she is on Cardizem drip at 5 mg per hour and heparin drip. Review of records from [facility] Urinalysis is not suspicious for infection WBC is normal at 9. Hemoglobin 13.9, platelets 226. However she has elevated neutrophil at 74.1. INR is 1.0. Sodium 139, potassium 3.8. Creatinine 1.1 EKG reported to have atrial fibrillation ProBNP is 277, TSH normal 2.9 CTA of the chest with contrast showing no definite acute central pulmonary embolus. Segmental and subsegmental pulmonary arteries are severely limited in evaluation. 07/02/2021 Palpitation resolved. His pain or dyspnea. Patient thinks she can go home today however she still needs IV antibiotic. Her heart rate is controlled on Cardizem 30 mg 3 times a day. Eliquis is recommended by cardiology and one month free coupon is going to be provided for the patient Potassium 3.4 was found to be replaced She is to have redness and warmth of the left leg although it is starts improving significantly, however I think she needs one more day of IV antibiotics. Cardiology team already cleared the patient for discharge Possible discharge in 24-48 hours if she keeps improving Objective - Vital Signs Vital signs: Vital Signs Temp 97.7 F 07/02/21 08:00 Pulse 81 07/02/21 08:00 Resp 18 07/02/21 08:00 BP 125/73 07/02/21 08:00 Pulse Ox 94 L 07/02/21 08:00 Intake & Output 07/01/21 07/02/21 07/02/21 18:59 06:59 18:59 Intake Total 706.167 480 240 Balance 706.167 480 240 Weight 149.3 kg Intake: Intake, IV Titration 106.167 Amount Heparin Sod,Pork in 0.45% 106.167 NaCl 25,000 unit In 0.45 % NaCl 1 250ml.bag @ 6. 6807 UNITS/KG/HR 10 mls/ hr IV .Q24H EZIO Rx#: [id number] Oral 600 480 240 Other: Voiding Method Toilet Toilet # Voids 2 2 1 - Exam -GENERAL: The patient is alert and oriented x3, not in any acute distress. Obese HEENT: Pupils are round and equally reacting to light. EOMI. No scleral icterus. No conjunctival pallor. Normocephalic, atraumatic. No pharyngeal erythema. No thyromegaly. CARDIOVASCULAR: S1 and S2 present. No murmurs, rubs, or gallops. PULMONARY: Chest is clear to auscultation, no wheezing or crackles. ABDOMEN: Soft, nontender, nondistended, normoactive bowel sounds. No palpable organomegaly. -MUSCULOSKELETAL: No joint swelling or deformity. EXTREMITIES: No cyanosis, clubbing, or pedal edema. Left leg is warm, red, improved NEUROLOGICAL: Gross neurological examination did not reveal any focal deficits. SKIN: No rashes. no petechiae. - Labs CBC & Chem 7: 07/02/21 07:14 07/02/21 07:14 Labs: Abnormal Lab Results - Last 24 Hours (Table) 07/02/21 Range/Units 07:14 Sodium 136 L (137-145) mmol/L Potassium 3.4 L (3.5-5.1) mmol/L Creatinine 1.09 H (0.52-1.04) mg/dL Glucose 103 H (74-99) mg/dL Assessment and Plan Assessment: New onset A. fib/flutter, rate controlled. Continue with Eliquis Acute left leg cellulitis , negative for DVT DVT Hypertension Hypothyroidism Elevated creatinine at 1.1, possible chronic kidney disease versus subacute elements History of GERD Plan: This is a pleasant 71 years old female who presents with A. fib and flutter. Continue with heparin and Cardizem drip. Cardiology consult. Museum Host/Hostess cleared the patient for discharge Continue with cefazolin. First oral antibiotics upon discharge Labs and medication were reviewed.. Continue same treatment. Continue with sy mptomatic treatment. Resume home medication. Monitor lytes and vitals. DVT and GI prophylaxis. Further recommendations depends on the clinical course of the patient DVT prophylaxis:s heparin GI Prophylaxis: Pepcid PT/OT: Pending Prognosis is guarded
--- NOTE | 2021-07-02 13:08 | ECHOF ---
Referral Reason:re: LV function MEASUREMENTS -------- HEIGHT: 167.6 cm WEIGHT: 149.7 kg BP: 125/73 RVIDd: 4.0 cm (< 3.3) IVSd: 1.4 cm (0.6 - 1.1) LVIDd: 4.0 cm (3.9 - 5.3) LVPWd: 1.3 cm (0.6 - 1.1) IVSs: 2.1 cm LVIDs: 2.5 cm LVPWs: 1.7 cm LA Diam: 3.7 cm (2.7 - 3.8) Ao Diam: 3.3 cm (2.0 - 3.7) AV Cusp: 2.1 cm (1.5 - 2.6) MV EXCURSION: 12.907 mm (> 18.000) MV EF SLOPE: 65 mm/s (70 - 150) EPSS: 0.3 cm MV E Taurus: 0.76 m/s MV DecT: 194 ms MV A Taurus: 0.80 m/s MV E/A Ratio: 0.96 RAP: 5.00 mmHg RVSP: 22.70 mmHg FINDINGS -------- Sinus rhythm. This was a technically adequate study. The left ventricular size is normal. There is moderate concentric left ventricular hypertrophy. O verall left ventricular systolic function is normal with, an EF between 55 - 60 %. The right ventricle is moderately enlarged. The left atrium is normal in size. The right atrial size is normal. The aortic valve is trileaflet, and appears structurally normal. No aortic stenosis or regurgitation. The mitral valve leaflets are mildly thickened. There is trace to mild mitral regurgitation. The tricuspid valve appears structurally normal. Mild tricuspid regurgitation present. Right vent ricular systolic pressure is normal at < 35 mmHg. The pulmonic valve was not well visualized. The aortic root size is normal. IVC Not well visulized. There is no pericardial effusion. CONCLUSIONS -------- 1. There is moderate concentric left ventricular hypertrophy. 2. Overall left ventricular systolic function is normal with, an EF between 55 - 60 %. 3. The right ventricle is moderately enlarged. 4. The aortic valve is trileaflet, and appears structurally normal. No aortic stenosis or regurgitati on. 5. There is trace to mild mitral regurgitation. 6. Mild tricuspid regurgitation present. 7. There is no pericardial effusion. OIL WELL SERVICE OPERATOR: Hellen Amaya RDCS
--- NOTE | 2021-07-02 15:59 | CDI ---
Typical atrial flutter Documentation Clarification Form Date: 07/02/2021 03:52:12 PM From: Sangita Jean-Baptiste RN, CCDS Admit Date: 06/30/2021 11:31:00 PM Patient Name: Ingrid Vivas Visit Number: [id number] ATTENTION: The Clinical Documentation Specialists (CDI) and [facility] Coding Staff appreciate your assistance in clarifying documentation. Please respond to the clarification below the line at the bottom and electronically sign. The CDI & [facility] Coding staff will review the response and follow-up if needed. Please note: Queries are made part of the Legal Health Record. If you have any questions, please contact the author of this message via ITS. Dr. Liz Hampton Atrial Flutter is documented 07/01 Cardiology Consult and Progress Notes and requires further specificity. Additional clarification regarding the type of Atrial Flutter is requested. History/Risk factors: HTN, Cholecystectomy, Hernia repair, Hysterectomy, Hypothyroidism Clinical Indicators: 07/01 Cardiology Consult: "New-onset atrial flutter, currently controlled ventricular rate." 07/02 Cardiology Progress Note: "New-onset paroxysmal atrial flutter, currently in sinus mechanism." 06/30 EKG/telemetry: Atrial Flutter 4:1 AV Conduction Treatment: Cardizem Gtt at 5 mg/hr then changed to Cardizem 30 mg PO TID IV Heparin Low intensity protocol Please clarify the type of Atrial Flutter, if known: [ ] Typical/Type I [ ] Atypical/Type II [ ] Other, please specify [ ] Unable to determine (Template Last Revised: January 2021) MTDD
[2021-07-03] MEDS: LEVOTHYROXINE 125 MCG TAB PO SCH (06:32)
[2021-07-03] MEDS: PANTOPRAZOLE 40 MG TABLET PO SCH (06:32)
[2021-07-03] MEDS: FUROSEMIDE 40 MG TAB PO SCH (06:34)
[2021-07-03 08:28] LABS: Calcium 9.1 mg/dL (8.4-10.2); Magnesium 1.6 mg/dL (1.6-2.3)
[2021-07-03] MEDS: LOSARTAN 50 MG TAB PO SCH (09:25)
[2021-07-03] MEDS: DILTIAZEM ORAL 30 MG TAB PO SCH ×3 (09:25→20:33)
[2021-07-03] MEDS: MAGNESIUM OXIDE 400 MG TAB PO SCH ×2 (09:25→20:32)
[2021-07-03] MEDS: APIXABAN 5 MG TAB PO SCH ×2 (09:25→20:32)
[2021-07-03] MEDS: FUROSEMIDE 10 MG/ML 4 ML VIAL IV SCH ×2 (09:47→20:33)
--- NOTE | 2021-07-03 11:18 | P.PN ---
Subjective This is a pleasant 71 years old female with past medical history of hypertension, GERD, hypothyroidism. She is a patient of Dr. Moreno. Her cardiol ogist is Dr. Miles, her PCP sent her to him but she is not sure why, she had a stress test 2 years ago but she could not finish it. She was transferred from [facility] for dyspnea and palpitations and found to have A. fib/flutter Patient states that she went to [facility] because of irregular palpitation Friday to Friday night, thus 2 nights ago. Patient also has referred to Dr. Barriga last week because of left leg cellulitis while on Keflex, ultrasound of the left leg was then showing no clot per report from [facility] Patient states that she has chronic dyspnea with no recent worsening Vital signs stable. Heart rate is controlled and 70s. Troponins 2 are -ve 0.015. INR is normal at 1.1. EKG showing atrial flutter with 421 AV block at [address]-T changes. In the emergency room also patient was started on cefazolin for possible cellulitis, she is on Cardizem drip at 5 mg per hour and heparin drip. Review of records from [facility] Urinalysis is not suspicious for infection WBC is normal at 9. Hemoglobin 13.9, platelets 226. However she has elevated neutrophil at 74.1. INR is 1.0. Sodium 139, potassium 3.8. Creatinine 1.1 EKG reported to have atrial fibrillation ProBNP is 277, TSH normal 2.9 CTA of the chest with contrast showing no definite acute central pulmonary embolus. Segmental and subsegmental pulmonary arteries are severely limited in evaluation. 07/02/2021 Palpitation resolved. His pain or dyspnea. Patient thinks she can go home today however she still needs IV antibiotic. Her heart rate is controlled on Cardizem 30 mg 3 times a day. Eliquis is recommended by cardiology and one month free coupon is going to be provided for the patient Potassium 3.4 was found to be replaced She is to have redness and warmth of the left leg although it is starts improving significantly, however I think she needs one more day of IV antibiotics. Cardiology team already cleared the patient for discharge Possible discharge in 24-48 hours if she keeps improving 07/03/2021 Patient with no chest pain or dyspnea. She still complaining of from left leg warmth, redness and swelling. Its improving but still symptomatic. Patient wanted to go home but I talked to her and she agrees to keep getting IV antibiotics. No leukocytosis and her creatinine is a stable at 1.1. Vitals are stable. Heart rate is controlled at 78. Patient kept on Cardizem 30 3 times a day We decreased her dose of cefazolin 1 g up to 2 g 3 times a day, infectious disease team also were consulted to help with the management. Cause of bilateral leg swelling we added Lasix 40 mg IV twice a day. Patient is currently on dose of Eliquis, home medication Objective - Vital Signs Vital signs: Vital Signs Temp 97.2 F L 07/03/21 08:00 Pulse 78 07/03/21 08:00 Resp 18 07/03/21 08:00 BP 129/79 07/03/21 08:00 Pulse Ox 95 07/03/21 08:00 Intake & Output 07/02/21 07/03/21 07/03/21 18:59 06:59 18:59 Intake Total 720 0 Balance 720 0 Intake: Oral 720 0 Other: Voiding Method Toilet Toilet Toilet # Voids 1 1 2 # Bowel Movements 1 1 - Exam -GENERAL: The patient is alert and oriented x3, not in any acute distress. Obese HEENT: Pupils are round and equally reacting to light. EOMI. No scleral icterus. No conjunctival pallor. Normocephalic, atraumatic. No pharyngeal erythema. No thyromegaly. CARDIOVASCULAR: S1 and S2 present. No murmurs, rubs, or gallops. PULMONARY: Chest is clear to auscultation, no wheezing or crackles. ABDOMEN: Soft, nontender, nondistended, normoactive bowel sounds. No palpable organomegaly. -MUSCULOSKELETAL: No joint swelling or deformity. EXTREMITIES: No cyanosis, clubbing, or pedal edema. Left leg is warm, red, improved NEUROLOGICAL: Gross neurological examination did not reveal any focal deficits. SKIN: No rashes. no petechiae. - Labs CBC & Chem 7: 07/02/21 07:14 07/03/21 07:08 Labs: Abnormal Lab Results - Last 24 Hours (Table) 07/03/21 Range/Units 07:08 Creatinine 1.11 H (0.52-1.04) mg/dL Glucose 109 H (74-99) mg/dL Assessment and Plan Assessment: New onset A. fib/flutter, rate controlled. Continue with Eliquis Acute left leg cellulitis , negative for DVT DVT Hypertension Hypothyroidism Elevated creatinine at 1.1, possible chronic kidney disease versus subacute elements History of GERD Plan: This is a pleasant 71 years old female who presents with A. fib and flutter. Continue with heparin and Cardizem drip. Cardiology consult. Provider Relations Manager cleared the patient for discharge Continue with cefazolin. Increased dose and consult infectious disease Labs and medication were reviewed.. Continue same treatment. Continue with symptomatic treatment. Resume home medication. Monitor lytes and vitals. DVT and GI prophylaxis. Further recommendations depends on the clinical course of the patient DVT prophylaxis:s heparin GI Prophylaxis: Pepcid PT/OT: Pending Prognosis is guarded
[2021-07-04 04:31] VITALS: TEMP 98
--- NOTE | 2021-07-04 06:29 | CONS ---
CONSULTATION DATE OF SERVICE: 07/03/2021 REASON FOR CONSULTATION: Left lower extremity cellulitis. HISTORY OF PRESENT ILLNESS: The patient is a 71-year-old female presented to the hospital 4 days ago on June 30 with initial presentation to [facility] where the patient presented concerning for increasing shortness of breath and palpitation. The patient's symptoms started the night before presentation to hospital and woke her up from sleep. The patient complaining of palpitation with shortness of breath. No chest pain. No cough or sputum production. No nausea. No vomiting. No abdominal pain. No diarrhea. The patient recently has been treated with long-term oral course of antibiotic for her left leg cellulitis. The patient subsequently has been admitted to the hospital and diagnosed with atrial flutter and is being monitored by Cardiology and admitting team. Patient on presentation to the hospital was afebrile. No fever has been recorded in the last 4 days. The patient did have a normal white count with concern for cellulitis. The patient started on cefazolin 2 grams q.8 hours. The left leg was more swollen and red today. Infectious disease was consulted for further management for antibiotic therapy. The patient has diffuse swelling and redness to the left leg. The patient has mild, dull aching pain to the left leg especially when she was standing on it. Intensity is 3-4 out of 10 and no radiation. Currently does not have any open wound or any drainage. REVIEW OF SYSTEMS: Positive points have been mentioned in HPI. Rest of systems are negative. PAST MEDICAL HISTORY: Gastroesophageal reflux disease, hypertension PAST SURGICAL HISTORY: hysterectomy. SOCIAL HISTORY: No history of smoking, drinking, drug use. ALLERGIES: CODEINE. PHYSICAL EXAMINATION: Blood pressure . GENERAL DESCRIPTION: The patient is an elderly female lying in bed in no distress. . HEENT examination: No pallor. No scleral icterus. HEART S1, S2 . LABORATORY DATA: , BUN of . DIAGNOSTIC IMPRESSION AND PLAN: Patient admitted to the hospital with palpitation and shortness of breath . The PLAN: 1. Cefazolin 2 grams q.8 hours for patient continued . 2. MMODL / IJN: [id number] /
[2021-07-04] MEDS: PANTOPRAZOLE 40 MG TABLET PO SCH (06:30)
[2021-07-04] MEDS: LEVOTHYROXINE 125 MCG TAB PO SCH (06:30)
[2021-07-04 08:04] VITALS: BP 127/71; PULSE 90; RESP 18
[2021-07-04] MEDS: DILTIAZEM ORAL 30 MG TAB PO SCH (08:08)
[2021-07-04] MEDS: MAGNESIUM OXIDE 400 MG TAB PO SCH (08:08)
[2021-07-04] MEDS: FUROSEMIDE 10 MG/ML 4 ML VIAL IV SCH (08:08)
[2021-07-04] MEDS: LOSARTAN 50 MG TAB PO SCH (08:09)
[2021-07-04] MEDS: APIXABAN 5 MG TAB PO SCH (08:09)
--- NOTE | 2021-07-04 13:41 | PN ---
PROGRESS NOTE DATE OF SERVICE: 07/04/2021 REASON FOR FOLLOWUP: Left lower extremity cellulitis. INTERVAL HISTORY: The patient is afebrile. The patient is breathing comfortably. The patient denies having any chest pain, shortness or cough. No abdominal pain. Overall pain and discomfort to the left leg has decreased. PHYSICAL EXAMINATION: Blood pressure is 127/71, pulse of 90, temperature 98. She is 97% on room air. General description is an elderly female up in the chair in no distress. Respiratory system: Unlabored breathing, clear to auscultation anteriorly. Heart S1, S2. Regular rate and rhythm. Abdomen soft, no tenderness. LABS: Hemoglobin is 12.9, white count 7.2, BUN of 14, creatinine is 1.11. DIAGNOSTIC IMPRESSION AND PLAN: Patient with left lower extremity cellulitis, overall clinical improvement on cefazolin. Finish therapy short course of oral Keflex, prescription was sent to the pharmacy. MMODL / IJN: [id number] /
--- NOTE | 2021-07-05 00:09 | P.DS ---
Providers Date of admission: 06/30/21 23:31 Attending physician: Suha Henry Consults: 06/30/21 23:31 Consult Physician Routine Consulting Provider: Omega Yanez Consult Reason/Comments: Atrial flutter with RVR. Do you want consulting provider notified?: Yes 07/03/21 08:35 Consult Physician Urgent Consulting Provider: Dora Rodriguez Consult Reason/Comments: left leg cellulitis , slow to respond Do you want consulting provider notified?: Yes Primary care physician: Sulma Moreno Hospital Course: Diagnoses: New onset A. fib/flutter, rate controlled. Continue with Eliquis Acute left leg cellulitis , negative for DVT DVT Hypertension Hypothyroidism Elevated creatinine at 1.1, possible chronic kidney disease versus subacute elements History of GERD Hospital course: This is a pleasant 71 years old female with past medical history of hypertension, GERD, hypothyroidism. She is a patient of Dr. Moreno. Her blasting coal miner is Dr. Miles, her PCP sent her to him but she is not sure why, she had a stress test 2 years ago but she could not finish it. She was transferred from [facility] for dyspnea and palpitations and found to have A. fib/flutter, new onset She has been evaluated by blasting coal miner and heart rate has been controlled with Cardizem 30 mg 3 times a day and started on Eliquis. She agrees with the co-pay first detectable 123 for one-time and then $40 a month. Also she has been treated for left leg cellulitis with cefazolin, improved and cleared by ID and blasting coal miner to be discharged on Keflex short oral course. On the day of discharge she is as symptomatic. No chest pain or dyspnea. No change in urine or bowel habits. No fever She was eager to go home over the last 2 days Problems and management plan were discussed with the patient and he verbalized understanding and acceptance Patient was found stable and can be discharged home however he needs follow-up as an outpatient. Patient was instructed to follow up with Dr. Moreno in one week and her blasting coal miner Dr. Hampton in 1-2 weeks and she agrees to call and make her on appointments Physical exam -Gen: patient is a AAOx3, no distress, obese CVS: S1-S2, RRR, no murmur Lungs: B/L CTA, no wheezing Abdomen: soft, no distention, no tenderness, positive bowel sounds -Extremity: no leg edema or induration. Minimal redness and warmth of the left leg, significantly improved Time spent more than 35 minutes Patient Condition at Discharge: Fair Plan - Discharge Summary Discharge Rx Participant: Yes New Discharge Prescriptions: New Apixaban [Eliquis] 5 mg PO BID 30 Days #60 tab Diltiazem Oral [Cardizem*] 30 mg PO TID 30 Days #90 tab Cephalexin [Keflex] 500 mg PO Q6HR 7 Days #28 cap Continue Omeprazole [PriLOSEC] 20 mg PO DAILY Acetaminophen Tab [Tylenol] 1,000 mg PO Q6HR PRN PRN Reason: Pain SILVER sulfADIAZINE CREAM [Silvadene Cream] 1 applic TOPICAL DAILY Potassium Chloride ER [K-Dur 10] 10 meq PO DAILY PRN PRN Reason: Edema Furosemide [Lasix] 10 mg PO DAILY PRN PRN Reason: Edema Levothyroxine Sodium [Synthroid] 125 mcg PO DAILY Losartan Potassium 100 mg PO DAILY 30 Days #30 tab Discontinued Ibuprofen [Motrin Ib] 400 mg PO Q8H PRN PRN Reason: Pain Discharge Medication List Omeprazole [PriLOSEC] 20 mg PO DAILY 02/02/15 [History] Acetaminophen Tab [Tylenol] 1,000 mg PO Q6HR PRN 07/01/21 [History] Furosemide [Lasix] 10 mg PO DAILY PRN 07/01/21 [History] Levothyroxine Sodium [Synthroid] 125 mcg PO DAILY 07/01/21 [History] Potassium Chloride ER [K-Dur 10] 10 meq PO DAILY PRN 07/01/21 [History] SILVER sulfADIAZINE CREAM [Silvadene Cream] 1 applic TOPICAL DAILY 07/01/21 [History] Apixaban [Eliquis] 5 mg PO BID 30 Days #60 tab 07/02/21 [Rx] Diltiazem Oral [Cardizem*] 30 mg PO TID 30 Days #90 tab 07/03/21 [Rx] Cephalexin [Keflex] 500 mg PO Q6HR 7 Days #28 cap 07/04/21 [Rx] Losartan Potassium 100 mg PO DAILY 30 Days #30 tab 07/04/21 [Rx] Follow up Appointment(s)/Referral(s): Sulma Moreno MD [Primary Care Provider] - 1-2 days (Office is closed; please call to make an appointment.) Liz Hampton MD [STAFF PHYSICIAN] - 2 Weeks (Cardiology will call you with an appointment.) Patient Instructions/Handouts: Atrial Flutter (DC), Heart Healthy Diet (DC) Activity/Diet/Wound Care/Special Instructions: Eliquis is $123 due to deductible and then cost will go down. 1st month will be free with coupon at [facility]. Discharge Disposition: HOME SELF-CARE
== END 2021-07-04 14:12 | disposition home or self-care (01) | DRG 309 ==
LOC: EC 22:36 → 3SCARD 23:31
PROVIDERS: ADMIT Hospitalist; ATTEND Hospitalist
DX: I48.3 Typical atrial flutter (principal); L03.116 Cellulitis of left lower limb; Z68.43 Body mass index [BMI] 50.0-59.9, adult; E66.9 Obesity, unspecified; I48.0 Paroxysmal atrial fibrillation; I87.2 Venous insufficiency (chronic) (peripheral); G47.30 Sleep apnea, unspecified; K21.9 Gastro-esophageal reflux disease without esophagitis; I10 Essential (primary) hypertension; E03.9 Hypothyroidism, unspecified; I07.1 Rheumatic tricuspid insufficiency; I44.30 Unspecified atrioventricular block; Z79.890 Hormone replacement therapy; Z79.899 Other long term (current) drug therapy; Z90.49 Acquired absence of other specified parts of digestive tract; Z87.19 Personal history of other diseases of the digestive system; Z90.710 Acquired absence of both cervix and uterus; Z87.42 Personal history of other diseases of the female genital tract; Z87.2 Personal history of diseases of the skin and subcutaneous tissue; Z98.890 Other specified postprocedural states; Z88.5 Allergy status to narcotic agent
CPT/HCPCS: 36415; 80048; 80061; 83036; 83735; 84484; 85025; 85610; 85730; 93005; 93306; 94760; 96365; 99285

== ENCOUNTER → 2023-08-19 | Outpatient (CLI) | payer MEDICARE ==
--- NOTE | 2023-08-19 15:03 | MM ---
Reason for Exam: Clinical finding. Last mammogram was performed 6 year(s) and 6 month(s) ago. Patient History: Menarche at age 15. First Full-Term at age 23. Left ovary removed at age 46. Right ovary removed at age 46. Hysterectomy at age 46. Postmenopausal. Estrogen for 1 year from age 46 until age 47. 1994, Benign Excisional Biopsy on the right side. Mother had breast cancer, age 64. Risk Values: Colleen 5 year model risk: 3.9%. NCI Lifetime model risk: 10.6%. Prior Study Comparison: 08/03/2014 Bilateral Screening Mammogram, [facility]. 12/21/2015 Bilateral Screening Mammogram, [facility]. 02/27/2017 Bilateral Screening Mammogram, [facility]. Tissue Density: There are scattered fibroglandular densities. Findings: Analyzed By CAD. Pattern appears stable. There are increasing benign appearing linear and punctate calcifications bilaterally. No suspicious cluster of microcalcifications is evident. Patient reports some adenopathy within the axillary regions. Suspicious adenopathy on mammography is not evident. Clinical management is recommended. No suspicious groups of microcalcifications, spiculated or lobular masses, architectural distortion or other secondary signs of malignancy are mammographically apparent. Overall Assessment: Benign, BI-RAD 2 Management: Screening Mammogram of both breasts in 1 year. A negative mammogram report should not preclude additional follow up of suspicious palpable abnormalities. Patient should continue monthly self breast exam. A clinical breast exam by your physician is recommended on an annual basis and results should be correlated with mammographic findings. Electronically signed and approved by: Surjit Membreno D.O. Radiologis
== END | disposition home or self-care (01) ==
LOC: RADMAMWWP 13:54
PROVIDERS: ATTEND Internal Medicine
DX: R92.8 Other abnormal and inconclusive findings on diagnostic imaging of breast (principal); Z78.0 Asymptomatic menopausal state; Z80.3 Family history of malignant neoplasm of breast
CPT/HCPCS: 77062; 77066